=== PATIENT | female | born 1935 | race Caucasian/White ===

== ENCOUNTER 2019-12-02 13:27 | Emergency (ER) | payer BC, OTHER ==
[~2019-12-02] VITALS: Ht 170.2 cm; Wt 49.9 kg
[~2019-12-02 13:27] MED LIST: ASPI81CH43 PO; CLOP75TA28 PO; CYAN1TAB14 PO; FER300LQ PO; LEVO25TA6 PO; LEVO500T21 PO; LISI10TA6 PO; MET25T PO; PANT1INJ3 PO; PRAV20TA3 PO
[2019-12-02] MEDS ORDERED: SODIUM CHLORIDE 0.9% 1,000 ML IV ONE (14:23)
[2019-12-02 14:37] LABS: Basophils # (auto) 0.1 10 ^3/uL (0-0.2); Basophils % (auto) 0.8 % (0.0-2.0); Eosinophils # (auto) 0.1 10 ^3/uL (0-0.8); Eosinophils % (auto) 1.3 % (0.0-7.0); Hematocrit 42.9 % (36.0-46.0); Hemoglobin 14.1 g/dL (12.2-16.2); Lymphocytes # (auto) 1.2 10 ^3/uL (0.4-5.4); Mean Corpuscular Hemoglobin 30.2 pg (28.0-32.0); Mean Corpuscular Volume 91.5 fL (80.0-100.0); Monocytes # (auto) 0.8 10 ^3/uL (0-1.3); Monocytes % (auto) 10.1 % (0.0-12.0); Neutrophils # (auto) 5.6 10 ^3/uL (1.6-8.6); Neutrophils % (auto) 72.8 % (37.0-80.0); Nucleated Red Blood Cells % 0.1 %; Platelet Count (auto) 255 10^3/uL (140-450); Red Blood Cells 4.69 10^6/uL (4.0-5.20); Red Cell Distribution Width 14.7 % (11.8-14.3); White Blood Cell 7.7 10^3/uL (4.4-10.8)
[2019-12-02 14:53] LABS: Albumin 3.5 g/dL (3.4-5.0); Calcium 9.1 mg/dL (8.5-10.1); Potassium 4.5 mmol/L (3.5-5.1)
[2019-12-02 14:59] LABS: BUN/Creatinine Ratio 21.5; Bilirubin, Total 0.9 mg/dL (0.2-1.0); Total Protein 7.3 g/dL (6.4-8.2)
[2019-12-02 17:14] LABS: Urine Bacteria NONE SEEN /hpf (None Seen); Urine Blood Negative /uL (Negative); Urine Mucus FEW (None Seen); Urine Specific Gravity 1.021 (1.001-1.035); Urine WBC 1 /hpf (0 - 5)
[2019-12-02] MEDS ORDERED: METOPROLOL TARTRATE 25 MG TAB PO ONE (17:30)
[2019-12-02] MEDS ORDERED: cefTRIAXone 1GM/50ML D5W 50 ML IV ONE (17:30)
[2019-12-02 19:10] VITALS: BP 124/81
== END 2019-12-02 19:30 | disposition other institution (70) ==
LOC: EDBD 13:27 → ER 13:27
DX: E86.0 Dehydration (principal); R33.9 Retention of urine, unspecified; N39.0 Urinary tract infection, site not specified; K80.20 Calculus of gallbladder without cholecystitis without obstruction; I12.9 Hypertensive chronic kidney disease with stage 1 through stage 4 chronic kidney disease, or unspecified chronic kidney disease; N18.9 Chronic kidney disease, unspecified; E07.9 Disorder of thyroid, unspecified; Z88.5 Allergy status to narcotic agent; Z79.899 Other long term (current) drug therapy
CPT/HCPCS: 36415; 51702; 70450; 71045; 74176; 80053; 81001; 84484; 85025; 93005; 96361; 96365; 99285; J0696; J7030

== ENCOUNTER → 2019-12-25 | Emergency (ER) | payer OTHER ==
[~2019-12-25] VITALS: Ht 167.6 cm; Wt 43.1 kg
[~2019-12-25] MED LIST changes: +BACITRACIN TOP OINT 1 UD PKG TOP ONE; +DEXTROSE (50%) 50ML SYRG IV ONE; +DEXTROSE 10% 1,000 ML IV ONE; +DEXTROSE 10% 1,000 ML IV SCH; +DEXTROSE 50% SYRINGE 50 ML IV ONE; +LIDOCAINE W/ EPINEPHRINE 1% 20ML VIAL SC ONE; +PIPERACILLIN-TAZOB 3.375GM 100 ML IV ONE; +SODIUM CHLORIDE 0.9% 1,000 ML IVB ONE; +SODIUM CHLORIDE 0.9% 500 ML IV ONE; +TETANUS-DIPTH-ACEL PERTUSSIS 0.5ML SYR Tdap IM ONE; +dilTIAZem 125mg/125ml BAG KIT 125 ML IV ONE; +dilTIAZem 25 MG/5 ML VIAL IV ONE
[2019-12-25 14:29] LABS: Red Cell Distribution Width 17.5 % (11.8-14.3)
[2019-12-25 14:31] LABS: Hematocrit 46.3 % (36.0-46.0); Hemoglobin 13.6 g/dL (12.2-16.2); Mean Corpuscular Hemoglobin 28.9 pg (28.0-32.0); Mean Corpuscular Hgb Conc. 29.4 g/dL (32.0-36.0); Mean Corpuscular Volume 98.1 fL (80.0-100.0); Platelet Count (auto) 242 10^3/uL (140-450); Red Blood Cells 4.72 10^6/uL (4.0-5.20); White Blood Cell 24.5 10^3/uL (4.4-10.8)
[2019-12-25 14:41] LABS: Basophils % (manual) 0 (0.0-2.0); Blast Cells 0; Eosinophils % (manual) 0 (0-7); Metamyelocytes % 0; Myelocytes % 0; Promyelocytes % 0; Reactive Lymphocytes 0
[2019-12-25 14:48] LABS: Albumin 2.5 g/dL (3.4-5.0); Magnesium 3.5 mg/dL (1.6-2.6)
[2019-12-25 14:49] LABS: INR 1.31 (0.9-1.15); Partial Thromboplastin Time 29.7 sec (23.64-32.05)
[2019-12-25 14:53] LABS: Band Neutrophils % (manual) 1; Bilirubin, Total 1.1 mg/dL (0.2-1.0); Lymphocytes % (manual) 3 (10.0-50.0); Monocytes % (manual) 5 (0-12); Total Protein 6.3 g/dL (6.4-8.2)
[2019-12-25 15:42] LABS: Urine WBC None Seen /hpf (0 - 5)
[2019-12-25 15:58] LABS: Urine Bacteria NONE SEEN /hpf (None Seen); Urine Blood Negative /uL (Negative); Urine Hyaline Cast MANY /lpf (0 - 2); Urine Mucus FEW (None Seen); Urine Specific Gravity 1.025 (1.001-1.035)
[2019-12-25 16:11] LABS: Alcohol, Urine < 3.0 mg/dL (0-5); Amphetamine Screen, Urine NEGATIVE (NEGATIVE); Barbiturate Scree,Urine NEGATIVE (NEGATIVE); Benzodiazephine Screen, Urine NEGATIVE (NEGATIVE); Cannabinoid Screen, Urine NEGATIVE (NEGATIVE); Cocaine Screen, Urine NEGATIVE (NEGATIVE); Opiate Scree,Urine NEGATIVE (NEGATIVE); Phencyclidine Screen, Urine NEGATIVE (NEGATIVE)
[2019-12-26 00:15] VITALS: BP 108/59
== END | disposition home or self-care (01) ==
LOC: EDUNIT# 13:22 → ER 13:33 → EDBD 13:33
DX: S00.83XA Contusion of other part of head, initial encounter (principal); S80.12XA Contusion of left lower leg, initial encounter; S80.11XA Contusion of right lower leg, initial encounter; S40.022A Contusion of left upper arm, initial encounter; S40.021A Contusion of right upper arm, initial encounter; S06.5X9A Traumatic subdural hemorrhage with loss of consciousness of unspecified duration, initial encounter; D72.828 Other elevated white blood cell count; R41.82 Altered mental status, unspecified; I48.0 Paroxysmal atrial fibrillation; E11.649 Type 2 diabetes mellitus with hypoglycemia without coma; G93.41 Metabolic encephalopathy; E86.0 Dehydration; E87.0 Hyperosmolality and hypernatremia; E83.41 Hypermagnesemia; E03.9 Hypothyroidism, unspecified; T68.XXXA Hypothermia, initial encounter; I13.0 Hypertensive heart and chronic kidney disease with heart failure and stage 1 through stage 4 chronic kidney disease, or unspecified chronic kidney disease; N18.9 Chronic kidney disease, unspecified; I50.42 Chronic combined systolic (congestive) and diastolic (congestive) heart failure; Z86.73 Personal history of transient ischemic attack (TIA), and cerebral infarction without residual deficits; Z90.710 Acquired absence of both cervix and uterus; Z88.5 Allergy status to narcotic agent; Z79.2 Long term (current) use of antibiotics; Z79.899 Other long term (current) drug therapy; Z79.82 Long term (current) use of aspirin; X58.XXXA Exposure to other specified factors, initial encounter; Y93.89 Activity, other specified; Y92.89 Other specified places as the place of occurrence of the external cause; Y99.8 Other external cause status
CPT/HCPCS: 36415; 70450; 71045; 72125; 73060; 73090; 80053; 80307; 81001; 82550; 82962; 83605; 83735; 83880; 84443; 84484; 85007; 85027; 85610; 85730; 87040; 90471; 90715; 93005; 96361; 96365; 96366; 96368; 96375; 96376; 99291; J2543; J7030; J7042